=== PATIENT | male | born 1990 | race Caucasian/White ===

== ENCOUNTER 2017-05-14 13:23 | Emergency (ER) | payer MEDICAID, BC | END 2017-05-14 15:09 | disposition home or self-care (01) | LOC: FTE 13:23 | DX: M25.521 Pain in right elbow (principal) | CPT/HCPCS: 73080; 73080-RT; 99283-25 ==

== ENCOUNTER 2018-05-06 19:31 | Emergency (ER) | payer SELFPAY, MEDICAID | END 2018-05-06 21:13 | disposition home or self-care (01) | LOC: FTE 19:31 | DX: H92.02 Otalgia, left ear (principal); F17.210 Nicotine dependence, cigarettes, uncomplicated | CPT/HCPCS: 99283 ==